=== PATIENT | male | born 1985 | race Caucasian/White ===

== ENCOUNTER 2018-09-24 01:16 | Emergency (ER) | payer OTHER ==
--- NOTE | 2018-09-24 01:23 | ED Physician Documentation ---
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 He was seen at the [facility] and given light duty and anti-inflammatories. He states he is continued to hurt through the week and was having more pain tonight.), Still present (seemed worse the past day today. No real change in activity, nor any recurrent injury per se. having much increased pain in scrotum/testicle today/tonight.) Associated symptoms: Testiclar pain, Scrotal swelling. No: Dysuria, Abdominal pain Similar symptoms before: Has not had sx before Recently seen: Clinic Review of Systems Constitutional: denies: Fever GI: denies: Abdominal Pain : denies: Dysuria, Frequency, Discharge Skin: denies: Rash, Lesions, Abrasion (s), Laceration (s) Musculoskeletal: denies: Back pain PD PAST MEDICAL HISTORY - Past Medical History Past Medical History: No - Present Medications Home Medications: Ambulatory Orders Medication Instructions Recorded Confirmed Hydrocodone/Acetaminophen [[place] 1 each PO Q6H PRN #15 tablet 09/24/18 5-325 Tablet] - Allergies Allergies/Adverse Reactions: Allergies Allergy/AdvReac Type Severity Reaction Status Date / Time No Known Drug Allergies Allergy Verified 09/24/18 01:29 PD ED PE NORMAL - Vitals Vital signs reviewed: Yes - General General: Alert and oriented X 3, Well developed/nourished, Other (appears uncomfortable due to scrotal pain) - Cardiac Cardiac: RRR, No murmur - Respiratory Respiratory: Clear bilaterally - Abdomen Abdomen: Normal bowel sounds, Soft, Non tender, Non distended - Male Male : Other (the left scrotum with some swelling above the testicle. No apparent redness nor bruising. No skin sores. There is fullness of the scrotum. Testicle seems to feel okay but is tender, limiting exam. ) - Rectal Rectal: Deferred - Back Back: No CVA TTP - Derm Derm: Normal color, Warm and dry Results - Vitals Vitals: Oxygen O2 Source Room air - Rads (name of study) scrotal U/S Radiology: Prelim report reviewed (Some swelling of the epididymis above the testicle. There is blood flow to both testicles. Left is slightly smaller than the right. Some hydrocele.), See rad report PD MEDICAL DECISION MAKING - ED course Complexity details: reviewed results, considered differential, d/w patient Departure - Departure Disposition: Home, Self Care Clinical Impression: Acute pain in scrotum Condition: Stable Record reviewed to determine appropriate education?: Yes Instructions: ED Contusion Testicles Or Scrotum Follow-Up: Tram Mccall MD [Primary Care Provider] - Ferny Castillo MD [Physician No Access] - Prescriptions: Hydrocodone/Acetaminophen [[place] 5-325 Tablet] 1 each PO Q6H PRN #15 tablet PRN Reason: Pain Comments: There does appear to be adequate blood flow in the left testicle and in fact some increased blood flow compared to the noninjured side. There is also a small fluid collection (hydrocele) in the scrotum as well and that likely repres ents the effect from the injury with a small collection of fluid or blood. Presumably this will continue to taper down. I would continue the ibuprofen 2-3 times a day. Add hydrocodone as needed. S crotal support with boxer briefs or jockstrap. Follow-up with your primary care in the next couple of days. Alternatively could follow-up with the urologist just to double check or second opinion and why it continues to hurt. Presume with the continued inflammation in the area. Discharge Date/Time: 09/24/18 03:47
[2018-09-24] MEDS ORDERED: MORPHINE 10 MG/ML VIAL IM STA (01:31)
[2018-09-24] MEDS ORDERED: KETOROLAC 30 MG/ML VIAL IM STA (01:31)
--- NOTE | 2018-09-24 03:04 | Ultrasound Report ---
Reason: testicle injury week ago; worse pain today/nite Procedure Date: 09/24/2018 Accession Number: [id number] / [id number] Procedure: US - Testicle w/Doppler Limited CPT Code: FULL RESULT: EXAM: SCROTAL ULTRASOUND EXAM DATE: 09/24/2018 02:40 AM. CLINICAL HISTORY: Testicle injury week ago; worse pain today/nite. COMPARISON: None. TECHNIQUE: Real-time scanning was performed with static images obtained. Color-flow images were utilized. FINDINGS: Right: Testis: 4.0 x 2.6 x 1.7 cm. Normal size and echotexture. No mass, calcification, or abnormal blood flow. Epididymis: 1.0 x 0.8 x 0.5 cm. Normal size and echotexture. No mass or abnormal blood flow. Hydrocele: None. Varicocele: None. Left: Testis: 2.7 x 2.3 x 1.6 cm. Heterogeneous echotexture. Increased vascularity. Epididymis: 1.2 x 0.9 x 1.0 cm. Enlarged and hyperemic. Hypoechoic. Hydrocele: Moderate complex septated fluid in the left hemiscrotum. Varicocele: None. IMPRESSION: 1. The left testis appears somewhat smaller than the right and has mildly heterogeneous echotexture. It also appears hyperemic. 2. Prominent hyperemic left epididymis. 3. Moderate complex septated left hydrocele. 4. Findings may be posttraumatic. Epididymoorchitis not excluded. RADIA
[2018-09-24 03:14] VITALS: BP 135/86
[2018-09-24] MEDS ORDERED: HYDROcod/ACET 5/325 Prepack 4 PO STA (03:30)
[2018-09-24] MEDS ORDERED: HYDROcod/ACETAM 5/325 MG TABLET PO STA (03:30)
== END 2018-09-24 03:47 | disposition home or self-care (01) ==
LOC: ED 01:16
DX: N50.82 Scrotal pain (principal); N43.2 Other hydrocele
CPT/HCPCS: 76870; 93976; 96372; 99284; A9270

== ENCOUNTER 2019-06-05 12:41 | Outpatient (CLI) | payer OTHER | END 2019-06-05 12:42 | disposition critical access hospital (66) | LOC: EMS 12:41 | PROVIDERS: ATTEND Surgery | DX: R10.9 Unspecified abdominal pain (principal); R31.9 Hematuria, unspecified; R11.10 Vomiting, unspecified | CPT/HCPCS: A0425; A0429 ==

== ENCOUNTER 2019-06-05 12:55 | Emergency (ER) | payer OTHER ==
--- NOTE | 2019-06-05 13:14 | ED Physician Documentation ---
History of Present Illness - Stated complaint Stated Complaint: SIDE PAIN - Chief complaint Chief Complaint: Abd Pain - History obtained from History obtained from: Patient, EMS - History of Present Illness Timing: Today Pain level max: 9 Pain level now: 8 - Additonal information Additional information: 34-year-old male presents to the emergency department with sudden onset of left flank pain approximately 5 hours prior to arrival. Noted blood in his urine as well. Family history of ureteral stones, but no personal history. Nothing makes it better or worse. Took Tylenol without relief. No fevers. No vomiting. No diarrhea. Review of Systems Constitutional: denies: Fever, Chills Cardiac: denies: Chest pain / pressure Respiratory: denies: Cough GI: denies: Vomiting, Diarrhea : denies: Dysuria, Frequency Musculoskeletal: denies: Neck pain, Back pain Neurologic: denies: Headache PD PAST MEDICAL HISTORY - Past Medical History Past Medical History: No - Past Surgical History Past Surgical History: No - Present Medications Home Medications: Ambulatory Orders Medication Instructions Recorded Confirmed Hydrocodone/Acetaminophen [[place] 1 each PO Q6H PRN #15 tablet 09/24/18 5-325 Tablet] Cephalexin [Keflex] 500 mg PO Q6H #28 capsule 06/05/19 Hydrocodone/Acetaminophen 1 - 2 each PO Q6H PRN #14 tablet 06/05/19 [Hydrocodon-Acetaminophen 5-325] Ibuprofen [Motrin] 800 mg PO Q8H PRN #30 tablet 06/05/19 Ondansetron Odt [Zofran] 4 mg TL Q6H PRN #10 tablet 06/05/19 Tamsulosin [Flomax] 0.4 mg PO DAILY #7 capsule 06/05/19 - Allergies Allergies/Adverse Reactions: Allergies Allergy/AdvReac Type Severity Reaction Status Date / Time No Known Drug Allergies Allergy Verified 06/05/19 13:03 - Living Situation Living Situation: reports: With family Living Arrangement: reports: At home - Social History Does the pt smoke?: No Smoking Status: Never smoker Does the pt drink ETOH?: Yes Does the pt have substance abuse?: No - Immunizations Immunizations are current?: Yes - POLST Patient has POLST: No PD ED PE NORMAL - Vitals Vital signs reviewed: Yes - General General: Alert and oriented X 3, Other (Appears uncomfortable) - HEENT HEENT: PERRL, Moist mucous membranes - Neck Neck: Supple, no meningeal sign - Cardiac Cardiac: RRR, Strong equal pulses - Respiratory Respiratory: No respiratory distress, Clear bilaterally - Abdomen Abdomen: Soft, Non tender, Non distended - Back Back: No CVA TTP - Derm Derm: Warm and dry - Extremities Extremities: No edema - Neuro Neuro: Alert and oriented X 3 - Psych Psych: Normal mood, Normal affect Results - Vitals Vitals: Vital Signs - 24 hr 06/05/19 06/05/19 06/05/19 13:03 13:10 14:09 Temperature 36.7 C 36.6 C Heart Rate 83 80 90 Respiratory 18 16 16 Rate Blood Pressure 147/78 H 135/75 H 132/68 H O2 Saturation 100 100 99 06/05/19 15:24 Temperature 36.7 C Heart Rate 78 Respiratory 14 Rate Blood Pressure 134/67 H O2 Saturation 100 Oxygen O2 Source Room air - Labs Labs: Laboratory Tests 06/05/19 06/05/19 06/05/19 13:00 13:00 14:00 WBC 9.1 RBC 4.98 Hgb 15.4 Hct 44.5 MCV 89.4 MCH 30.9 MCHC 34.6 RDW 12.2 Plt Count 321 MPV 10.4 Neut # (Auto) 7.5 H Lymph # (Auto) 1.1 L [place] # (Auto) 0.4 Eos # (Auto) 0.0 Baso # (Auto) 0.0 Absolute Nucleated RBC 0.00 Nucleated RBC % 0.0 Sodium 137 Potassium 3.9 Chloride 105 Carbon Dioxide 24 Anion Gap 8.0 BUN 14 Creatinine 1.3 H Estimated GFR (MDRD) 64 L Glucose 130 H Calcium 9.8 Total Bilirubin 1.0 AST 40 ALT 50 Alkaline Phosphatase 56 Total Protein 8.2 Albumin 5.1 Globulin 3.1 Albumin/Globulin Ratio 1.6 Lipase 36 Urine Color YELLOW Urine Clarity CLEAR Urine pH 7.5 Ur Specific [place] 1.015 Urine Protein NEGATIVE Urine Glucose (UA) NEGATIVE Urine Ketones NEGATIVE Urine Occult Blood MODERATE H Urine Nitrite NEGATIVE Urine Bilirubin NEGATIVE Urine Urobilinogen 0.2 (NORMAL) Ur Leukocyte Esterase TRACE H Urine RBC 0-5 Urine WBC 6-10 H Ur Squamous Epith Cells NONE SEEN Urine Bacteria Few Ur Microscopic Review INDICATED Urine Culture Comments INDICATED - Rads (name of study) CT abd/pelvis Radiology: Prelim report reviewed, EMP read contemporaneously, See rad report (1. Mildly obstructing 4 mm stone at the left ureterovesical junction. 2. Hepatic steatosis. Mild splenomegaly. ) PD MEDICAL DECISION MAKING - ED course Complexity details: reviewed results, re-evaluated patient, considered differential, d/w patient ED course: Patient with a 4 mm left ureteral stone at the ureterovesical junction. Pain resolved with Toradol and intravenous lidocaine. Given Rocephin IV. We will also place him on antibiotics. He is well-appearing, nontoxic. Possible that he already passed the stone. He did urinate after the CT scan and feels better. Patient counseled regarding signs and symptoms for which I believe and urgent re-evaluation would be necessary. Patient with good understanding of and agreement to plan and is comfortable going home at this time This document was made in part using voice recognition software. While efforts are made to proofread this document, sound alike and grammatical errors may occur. Departure - Departure Disposition: 01 Home, Self Care Clinical Impression: Ureteral stone Condition: Good Instructions: ED Stone Renal W Colic Follow-Up: Tram Mccall MD [Primary Care Provider] - Within 1 week Prescriptions: Cephalexin [Keflex] 500 mg PO Q6H #28 capsule Hydrocodone/Acetaminophen [Hydrocodon-Acetaminophen 5-325] 1 - 2 each PO Q6H PRN #14 tablet PRN Reason: pain Ibuprofen [Motrin] 800 mg PO Q8H PRN #30 tablet PRN Reason: PAIN &/OR FEVER Ondansetron Odt [Zofran] 4 mg TL Q6H PRN #10 tablet PRN Reason: Nausea / Vomiting Tamsulosin [Flomax] 0.4 mg PO DAILY #7 capsule Comments: Use the medications as prescribed. Return if you worsen. You appear to have a 4 mm ureteral stone. Return especially for uncontrolled pain, uncontrolled vomiting or fevers. Follow-up with your doctor for further care. Do not drink alcohol or drive while on narcotic pain medicine. Note that many narcotic pain relievers also contain tylenol/acetaminophen. Please ensure that your total dose of acetaminophen from all sources does not exceed 3 grams (3000mg) per day. You may constipated on this medication, take a stool softener such as "Colace" twice a day while you are on it. Also recommend a [id number]-rhb-lnthbtd laxative such as senna or MiraLAX any day that you do not have a bowel movement. If you received narcotic pain medication in the emergency department, do not drive or operate machinery for the next 24 hours. Discharge Date/Time: 06/05/19 15:31
[2019-06-05 13:16] LABS: BASOPHILS % (AUTO) 0.3 %; EOSINOPHILS % (AUTO) 0.4 %; HGB - HEMOGLOBIN 15.4 g/dL (14.0-18.0); LYMPHOCYTES # (AUTO) 1.1 10^3/uL (1.5-3.5); LYMPHOCYTES % (AUTO) 11.7 %; MEAN CORPUSCULAR HEMOGLOBIN 30.9 pg (27.0-31.0); MEAN CORPUSCULAR HGB CONC 34.6 g/dL (32.0-36.0); MEAN CORPUSCULAR VOLUME 89.4 fL (80.0-94.0); MEAN PLATELET VOLUME 10.4 fL (7.4-11.4); MONOCYTES # (AUTO) 0.4 10^3/uL (0.0-1.0); MONOCYTES % (AUTO) 4.5 %; NEUTROPHILS # (AUTO) 7.5 10^3/uL (1.5-6.6); NEUTROPHILS % (AUTO) 82.8 %; PLT - PLATELET COUNT 321 10^3/uL (130-450); RED BLOOD COUNT 4.98 10^6/uL (4.70-6.10); RED CELL DISTRIBUTION WIDTH 12.2 % (12.0-15.0); WHITE BLOOD COUNT 9.1 x10^3/uL (4.8-10.8)
[2019-06-05] MEDS: KETOROLAC 30 MG/ML VIAL IVP STA (13:19)
[2019-06-05] MEDS: LIDOCAINE-MPF 2% 6 ML in SODIUM CHLORIDE 0.9% 50 ML IV STA (13:19)
[2019-06-05] MEDS: SODIUM CHLORIDE 0.9% 1,000 ML IV ONE (13:20)
[2019-06-05 13:33] LABS: ALBUMIN 5.1 g/dL (3.2-5.5); ALBUMIN/GLOBULIN RATIO 1.6 (1.0-2.2); CALCIUM 9.8 mg/dL (8.5-10.3); CREATININE 1.3 mg/dL (0.6-1.2); TOTAL PROTEIN 8.2 g/dL (6.7-8.2)
[2019-06-05 14:17] LABS: BILIRUBIN,URINE NEGATIVE (NEGATIVE); GLUCOSE, URINE (UA) NEGATIVE (NEGATIVE); KETONES,URINE (UA) NEGATIVE (NEGATIVE); LEUKOCYTE ESTERASE, URINE TRACE (NEGATIVE); NITRITE,URINE NEGATIVE (NEGATIVE); OCCULT BLOOD,URINE MODERATE (NEGATIVE); PH,URINE 7.5 PH (5.0-7.5); PROTEIN,URINE NEGATIVE (NEGATIVE); UROBILINOGEN,URINE 0.2 (NORMAL) E.U./dL (NORMAL)
[2019-06-05 14:24] LABS: CLARITY,URINE CLEAR (CLEAR)
[2019-06-05 14:33] LABS: BACTERIA,URINE Few /HPF (None Seen); RBC,URINE 0-5 /HPF (0-5); SQUAMOUS EPITHELIAL CELL,UR NONE SEEN (<= Few)
--- NOTE | 2019-06-05 14:54 | CT Report ---
Reason: L flank pain Procedure Date: 06/05/2019 Accession Number: [id number] / [id number] Procedure: CT - Abdomen/Pelvis WO CPT Code: Final Report FULL RESULT: EXAM: CT ABDOMEN AND PELVIS (CT KUB) EXAM DATE: 06/05/2019 01:33 PM. CLINICAL HISTORY: L flank pain. COMPARISONS: TESTICLE W/DOPPLER LIMITED 09/24/2018 1:47 AM. TECHNIQUE: Routine axial helical CT imaging was performed through the abdomen and pelvis without IV contrast. Reconstructions: Coronal and sagittal. In accordance with CT protocol optimization, one or more of the following dose reduction techniques were utilized for this exam: automated exposure control, adjustment of mA and/or KV based on patient size, or use of iterative reconstructive technique. FINDINGS: Evaluation of solid abdominal organs is limited without intravenous contrast. Lung Bases: Unremarkable. Right Kidney/Ureter: No stone, hydronephrosis, or hydroureter. No perinephric fat stranding. Left Kidney/Ureter: There is mild hydronephrosis and hydroureter with minimal perinephric stranding. Obstructing stone at the left ureterovesical junction measures 4 mm. No additional stone. Other Solid Organs: Probable fatty infiltration of the liver. Spleen is mildly enlarged, measuring 13.8 cm craniocaudal. Gallbladder/Bile Ducts: Unremarkable. Peritoneal Cavity: No free fluid or free air. Pelvic Organs: No bladder stone or wall thickening. Normal size prostate gland. Vasculature: Unremarkable. Other: None. IMPRESSION: 1. Mildly obstructing 4 mm stone at the left ureterovesical junction. 2. Hepatic steatosis. Mild splenomegaly. RADIA
[2019-06-05] MEDS: cefTRIAXone 1 GM VIAL IVP STA (15:16)
[2019-06-05 15:25] VITALS: BP 134/67
== END 2019-06-05 15:31 | disposition home or self-care (01) ==
LOC: EDUNIT# → ED 12:55
DX: N13.2 Hydronephrosis with renal and ureteral calculous obstruction (principal)
CPT/HCPCS: 36415; 74176; 80053; 81001; 83690; 85025; 87077; 87086; 96365; 96375; 99284; J7040; 81003